=== PATIENT | male | born 1985 | race African-American/Black ===

== ENCOUNTER 2017-02-04 03:45 | Emergency (ER) | payer SELFPAY ==
[~2017-02-04] VITALS: Ht 185.4 cm; Wt 93.0 kg
[2017-02-04 04:45] VITALS: BP 132/75
== END 2017-02-04 05:55 | disposition left against medical advice (07) ==
LOC: ER 05:55
DX: F41.0 Panic disorder [episodic paroxysmal anxiety] (principal); R42 Dizziness and giddiness; Z53.21 Procedure and treatment not carried out due to patient leaving prior to being seen by health care provider